=== PATIENT | male | born 1980 | race Caucasian/White ===

== ENCOUNTER 2018-12-15 09:54 | Emergency (ER) | payer BC ==
[~2018-12-15] VITALS: Ht 170.2 cm; Wt 63.5 kg
--- NOTE | 2018-12-15 10:12 | NUR ---
SHAYLEE WILSON AT BEDSIDE FOR MSE.
[2018-12-15] MEDS ORDERED: ACETAMINOPHEN ES 500 MG TABLET ONE (10:26)
[2018-12-15] MEDS ORDERED: IBUPROFEN 600 MG TABLET ONE (10:26)
[2018-12-15 10:33] LABS: BASOPHILS % (AUTO) 0.7 % (0.0-2.0); EOSINOPHILS # (AUTO) 0.1 K/uL (0.0-0.7); EOSINOPHILS % (AUTO) 2.4 % (0.0-7.0); HEMATOCRIT 43.4 % (36.7-47.1); HEMOGLOBIN 14.7 g/dL (12.5-16.3); LYMPHOCYTES # (AUTO) 2.2 K/uL (20.0-40.0); LYMPHOCYTES % (AUTO) 45.5 % (20.5-51.5); MEAN CORPUSCULAR HEMOGLOBIN 27.6 uug (23.8-33.4); MEAN CORPUSCULAR HGB CONC 34 g/dL (32.5-36.3); MEAN CORPUSCULAR VOLUME 81.7 fL (73.0-96.2); MONOCYTES # (AUTO) 0.3 K/uL (2.0-10.0); MONOCYTES % (AUTO) 7.1 % (0.0-11.0); NEUTROPHILS # (AUTO) 2.2 K/uL (1.8-8.9); NEUTROPHILS % (AUTO) 44.3 % (38.5-71.5); PLATELET COUNT (AUTO) 214 K/uL (152-348); RED BLOOD CELL COUNT(AUTO) 5.31 MIL/uL (4.06-5.63); WHITE BLOOD COUNT (AUTO) 4.9 K/uL (3.6-10.2)
[2018-12-15] MEDS: IBUPROFEN 600 MG TABLET PO ONE (10:35)
[2018-12-15] MEDS: ACETAMINOPHEN ES 500 MG TABLET PO ONE (10:35)
[2018-12-15 10:41] LABS: CREATININE 1.2 mg/dL (0.6-1.3); POTASSIUM 4.3 mmol/L (3.5-5.1)
[2018-12-15 10:47] LABS: BILIRUBIN,DIRECT 0.1 mg/dL (0.0-0.2); BILIRUBIN,TOTAL 0.5 mg/dL (0.2-1.0); TOTAL PROTEIN, SERUM 7.7 g/dL (6.4-8.2)
--- NOTE | 2018-12-15 10:57 | NUR ---
Patient discharged to home in stable conditon. Written and verbal after care instructions given. Patient verbalizes understanding of instructions. ALL BELONGINGS W/ PT. PT SELF-AMBULATED W/O DIFFICULTY. 20G IV ACCESS IN LAC REMOVED PRIOR TO D/C - INNER CANNULA INTACT.
[2018-12-15 10:58] VITALS: BP 108/82
== END 2018-12-15 10:58 | disposition home or self-care (01) ==
LOC: ER 09:54
DX: M79.622 Pain in left upper arm (principal); E78.00 Pure hypercholesterolemia, unspecified
CPT/HCPCS: 36415; 70030-TC; 71045; 85025; 93005; A4663; A9150